=== PATIENT | male | born 1960 ===

== ENCOUNTER 2022-05-31 14:17 | Emergency (ER) | payer MEDICAID ==
[2022-05-31] MEDS: Ketorolac 30 MG/ML SDV IM ONE (15:43)
[2022-05-31] MEDS: Ketorolac 60 MG/2 ML SDV ONE (15:45)
== END 2022-05-31 15:45 | disposition home or self-care (01) ==
LOC: LB.ED 14:17
DX: M25.562 Pain in left knee (principal); I25.2 Old myocardial infarction; E11.9 Type 2 diabetes mellitus without complications; Z88.0 Allergy status to penicillin; Z88.5 Allergy status to narcotic agent; Z79.899 Other long term (current) drug therapy; Z72.0 Tobacco use
CPT/HCPCS: 73562; 96372; 99283; J1885